=== PATIENT | male | born 1975 | race Two or more races ===

== ENCOUNTER 2020-01-12 07:29 | Day surgery (SDC) | payer BC ==
[2020-01-12] VITALS (11 sets, daily range): BP systolic 89–119; BP diastolic 50–72
[~2020-01-12] VITALS: Ht 175.3 cm; Wt 63.5 kg
[2020-01-12] MEDS ORDERED: TRUVADA 200 MG1 EAC1 ORAL (08:30)
[2020-01-12] MEDS ORDERED: PROSCAR5 MG ORAL (08:31)
[2020-01-12] MEDS ORDERED: LR 1000ml ONE (09:00)
[2020-01-12] MEDS ORDERED: Lidocaine 1% MPF 10mg/ml 5ml ONE (09:00)
--- NOTE | 2020-01-12 09:18 | Pre-Procedure Note/Attestation ---
Pre-Procedure Note/Attestation Complete Prior to Procedure Planned Procedure: not applicable Procedure Narrative: COLONOSCOPY Indications for Procedure Pre-Operative Diagnosis: screen Attestation I attest that I discussed the nature of the procedure; its benefits; risks and complications; and alternatives (and the risks and benefits of such alternatives ), prior to the procedure, with the patient (or the patient's legal medical detail representative). I attest that, if there was a reasonable possibility of needing a blood transfusion, the patient (or the patient's legal medical detail representative) was given the [facility] standardized written summary, pursuant to the [place] Blood Safety Act ([place] Health and Safety Code # 1645, as amended). I attest that I re-evaluated the patient just prior to the surgery and that there has been no change in the patient's H&P, except as documented below: Ly Martini MD Jan 12, 2020 09:18
--- NOTE | 2020-01-12 09:21 | Short Stay Surgery H&P ---
History of Present Illness History of Present Illness Chief Complaint see H&P HPI Jered Cruz is a 44 year old male who was admitted on for Colon Screening Patient History Allergies: Coded Allergies: PEANUT (Verified Allergy, Intermediate, hives, 01/12/20) SOYBEAN (Verified Allergy, Intermediate, hives, 01/12/20) Medication History Scheduled Emtricitabine/Tenofovir 200-300MG* (Truvada 200-300MG*), 1 TAB ORAL DAILY, ( Reported) Finasteride* (Proscar*), 5 MG ORAL DAILY, (Reported) Physical Exam Vital Signs Last Vital Signs Date Time Temp Pulse Resp B/P (MAP) Pulse Ox O2 Delivery O2 Flow Rate FiO2 01/12/20 08:24 96.6 56 18 119/70 100 Room Air Plan Attestation Are the patient's medical conditions optimized for surgery? Ly Martini MD Jan 12, 2020 09:21
--- NOTE | 2020-01-12 09:54 | Immediate Post-Op Evaluation ---
Immediate Post-Op Evalulation Immediate Post-Op Evalulation Procedure: Colonoscopy Date of Evaluation: Jan 12, 2020 Time of Evaluation: 09:53 IV Fluids: 800 Blood Pressure Systolic: 86 Blood Pressure Diastolic: 50 Pulse Rate: 84 Respiratory Rate: 14 O2 Sat by Pulse Oximetry: 98 Temperature (Fahrenheit): 97.4 Nausea: No Vomiting: No Complications none Patient Status: awake, reacts, patent Hydration Status: adequate Drug: none Kathya Ospina CRNA Jan 12, 2020 09:54
--- NOTE | 2020-01-12 09:55 | Anethesia Preoperative Eval ---
Anesthesia Pre-op PMH/ROS General Date of Evaluation: Jan 12, 2020 Time of Evaluation: 09:15 Anesthesiologist: glenda ASA Score: ASA 1 Mallampati Score Class I : Soft palate, uvula, fauces, pillars visible Class II: Soft palate, uvula, fauces visible Class III: Soft palate, base of uvula visible Class IV: Only hard plate visible Mallampati Classification: Class II Surgeon: ignacio Diagnosis: screening Surgical Procedure: colonoscopy Anesthesia History: none Family History: no anesthesia problems Allergies: Coded Allergies: PEANUT (Verified Allergy, Intermediate, hives, 01/12/20) SOYBEAN (Verified Allergy, Intermediate, hives, 01/12/20) Medications: see eMAR Patient NPO?: Yes NPO Date: Jan 12, 2020 NPO Time: 00:01 Past Medical History Cardiovascular: Denies: HTN, CAD, LA, valve dz, arrhythmia, other Pulmonary: Denies: asthma, COPD, VICK, other Gastrointestinal/Genitourinary: Reports: GERD; Denies: CRI, ESRD, other Neurologic/Psychiatric: Denies: dementia, CVA, depression/anxiety, TIA, other Endocrine: Denies: DM, hypothyroidism, steroids, other HEENT: Denies: cataract (L), cataract (R), glaucoma, KAKE (L), KAKE (R), other Hematology/Immune: Denies: anemia, DVT, bleeding disorder, other Musculoskeletal/Integumentary: Denies: OA, RA, DJD, DDD, edema, other PSxH Narrative: none Anesthesia Pre-op Phys. Exam Physician Exam Last Vital Signs Date Time Temp Pulse Resp B/P (MAP) Pulse Ox O2 Delivery O2 Flow Rate FiO2 01/12/20 08:24 96.6 56 18 119/70 100 Room Air Constitutional: NAD Neurologic: CN 2-12 intact Cardiovascular: RRR Respiratory: CTA Gastrointestinal: S/NT/ND Airway Exam Mallampati Classification 2 Mallampati Score: Class II MO: full ROM: full Dentures: no upper, no lower Anesthesia Pre-op A/P Studies Pre-op Studies: EKG - sr Risk Assessment & Plan Plan: mac Status Change Before Surgery: No Pre-Antibiotics Drug: none Kathya Ospina CRNA Jan 12, 2020 09:55
--- NOTE | 2020-01-12 11:01 | Endoscopy Procedure Note ---
Endoscopy Procedure Note General Indication for Procedure: screening Procedures Performed: colonoscopy Operative Findings/Diagnosis: screen Specimen: none Pt Tolerated Procedure Well: Yes Estimated Blood Loss: none Anesthesia Anesthesiologist: ALEXSANDER Anesthesia: moderate sedation Medications Medication Given: see anesthesia record Inserted Devices Implant(s) used?: No GI Core Measures 50 yrs or older w/o bx or poly: Not Applicable 10yrs. F/U recommended: Not Applicable Ly Martini MD Jan 12, 2020 11:01
--- NOTE | 2020-01-12 11:02 | Brief Operative Note ---
Immediate Post Operative Note Operative Note Chief Complaint: screen Pre-op Diagnosis: screen Procedure: colon Post-op Diagnosis: normal Anesthesiologist: ALEXSANDER Specimen: yes Complications: none Condition: stable Fluids: per PODIATRY PROFESSOR Implant(s) used?: No Ly Martini MD Jan 12, 2020 11:02
--- NOTE | 2020-01-12 12:02 | 48 Hour Post Anesthesia Eval ---
Post Anesthesia Evaluation Procedure: Colonoscopy Date of Evaluation: Jan 12, 2020 Time of Evaluation: 12:01 Blood Pressure Systolic: 91 0: 50 Pulse Rate: 64 Respiratory Rate: 14 O2 Sat by Pulse Oximetry: 98 Airway: patent Nausea: No Vomiting: No Hydration Status: adequate Cardiopulmonary Status: stable Mental Status/LOC: patient returned to baseline Post-Anesthesia Complications: none Follow-up care needed: N/A Kathya Ospina CRNA Jan 12, 2020 12:02
--- NOTE | 2020-01-12 14:30 | Procedure Note ---
DATE OF PROCEDURE: 01/12/2020 PROCEDURE: Screening colonoscopy. SURGEON: Ly Martini MD. ANESTHESIA: Please see the separate anesthesiologist notes for details. PRE-ENDOSCOPIC DIAGNOSIS: Screening evaluation. POST-ENDOSCOPIC DIAGNOSIS: Normal colonoscopy. DESCRIPTION OF PROCEDURE: The procedure its risks, indications, alternatives, and possible complications were explained to the patient and informed consent was obtained. The patient was then sedated in the left lateral decubitus position. A rectal exam was done, which was normal. The colonoscope was then introduced in the rectum and advanced to the terminal ileum for about 10 cm without difficulty. The colonoscope was then gradually withdrawn and mucosa examined carefully. Examination of the colon mucosa as well as the terminal ileal mucosa did not reveal any abnormalities. The colonoscope was removed. The patient was sent to recovery in good condition. COMPLICATIONS: None. RECOMMENDATIONS: 1. Resume oral diet. 2. Followup with primary physician. 3. Repeat colonoscopy in 10 years. Thank you for asking me to participate in the care of this patient. Ly Martini M.D. DR: [place] JOB#: [id number] CC: MD LY Bergeron M.D. ; FAX#: [phone]
== END 2020-01-12 11:10 | disposition home or self-care (01) ==
LOC: GAS 07:29
DX: Z12.11 Encounter for screening for malignant neoplasm of colon (principal); K21.9 Gastro-esophageal reflux disease without esophagitis; Z91.010 Allergy to peanuts; Z91.018 Allergy to other foods
CPT/HCPCS: 94003; G0121; J2704; J7120; U0002; 94150